=== PATIENT | female | born 1945 | race African-American/Black ===

== ENCOUNTER 2018-12-03 09:57 | Emergency (ER) | payer MEDICAID, MEDICARE, OTHER ==
[~2018-12-03] VITALS: Ht 157.5 cm; Wt 54.0 kg
[~2018-12-03 09:57] MED LIST: CEPH-569 PO
[2018-12-03] MEDS ORDERED: SODIUM CHLORIDE 0.9% 1,000 ML IV ONE (11:04)
[2018-12-03] MEDS ORDERED: ONDANSETRON HCL 4MG/2ML INJ IV STA (11:04)
[2018-12-03] MEDS ORDERED: MORPHINE SULFATE 4 MG/ML CPJ (NOT FOR IM USE) IV STA (11:04)
[2018-12-03 11:53] LABS: MEAN CORPUSCULAR HEMOGLOBIN 16.6 pg (28.0-32.0); MEAN CORPUSCULAR VOLUME 57.8 fL (81.0-99.0); MEAN PLATELET VOLUME 6.4 fl (7.4-10.4); PLATELET 905 x1000/uL (130-400); RED BLOOD CELL COUNT 2.68 mill/uL (4.2-5.4); RED CELL DISTRIBUTION WIDTH 19.5 % (11.6-14.6)
[2018-12-03 11:58] LABS: CHLORIDE 110 mEq/L (98-107)
[2018-12-03 11:59] LABS: INR 1.1; PROTHROMBIN TIME 11.4 sec (9.6-11.0)
[2018-12-03 12:11] LABS: HEMATOCRIT. 15.5 % (36.0-48.0); HEMOGLOBIN. 4.5 g/dL (12.0-16.0)
[2018-12-03 12:37] LABS: PLATELET ESTIMATE MARKEDLY INCREASED
[2018-12-03] MEDS ORDERED: IOHEXOL-300 100 ML BOTTLE ONE (14:27)
[2018-12-03 14:57] LABS: CLARITY URINE CLEAR (CLEAR); COLOR URINE YELLOW (YELLOW); KETONES URINE 1+ (NEGATIVE); LEUKOCYTE ESTERASE URINE 1+ (NEGATIVE); NITRITE URINE NEGATIVE (NEGATIVE); OCCULT BLOOD URINE NEGATIVE (NEGATIVE); PROTEIN URINE NEGATIVE (NEGATIVE); SPECIFIC GRAVITY URINE 1.022 (1.005-1.030); UROBILINOGEN URINE 0.2 E.U./dL (0.2-1.0)
[2018-12-03] MEDS ORDERED: METRONIDAZOLE 500 MG PREMIX 100 ML IV ONE (15:15)
[2018-12-03] MEDS ORDERED: CEFTRIAXONE 2 G PREMIX 50 ML IV ONE (15:15)
[2018-12-03 21:30] VITALS: BP 129/57
== END 2018-12-03 22:11 | disposition short-term general hospital (02) ==
LOC: ER 09:57
DX: D47.3 Essential (hemorrhagic) thrombocythemia (principal); K52.9 Noninfective gastroenteritis and colitis, unspecified; N39.0 Urinary tract infection, site not specified
CPT/HCPCS: 36415; 74177; 80053; 81003; 82270; 83690; 85025; 85610; 86850; 86900; 86901; 86920; 93005; 96361; 96365; 96367; 96375; 99291; J0696; J2270; J2405; J3490; J7030; Q9967; P9016

== ENCOUNTER 2020-01-02 13:32 | Emergency (ER) | payer MEDICARE, OTHER ==
[~2020-01-02] VITALS: Ht 154.9 cm; Wt 41.0 kg
[2020-01-02] MEDS ORDERED: SODIUM CHLORIDE 0.9% 1,000 ML IV ONE ×2 (13:48→15:00)
[2020-01-02 14:40] LABS: HEMATOCRIT. 30.9 % (36.0-48.0); HEMOGLOBIN. 10.5 g/dL (12.0-16.0); MEAN CORPUSCULAR HEMOGLOBIN 29.2 pg (28.0-32.0); MEAN PLATELET VOLUME 7.2 fl (7.4-10.4); PLATELET 226 x1000/uL (130-400); RED BLOOD CELL COUNT 3.59 mill/uL (4.2-5.4); RED CELL DISTRIBUTION WIDTH 15.8 % (11.6-14.6)
[2020-01-02 14:41] LABS: CHLORIDE 104 mEq/L (98-107)
[2020-01-02 14:42] LABS: INR 1.4; PROTHROMBIN TIME 14.3 sec (9.6-11.0)
[2020-01-02] MEDS ORDERED: POTASSIUM CHLORIDE INJ 40 MEQ in DEXT 5% WATER 250 ML IV ONE (15:00)
[2020-01-02] MEDS ORDERED: POTASSIUM CHLORIDE 20MEQ TABLET SR PO ONE (15:00)
[2020-01-02 16:37] LABS: PLATELET ESTIMATE NORMAL
[2020-01-02 20:18] VITALS: BP 128/67
== END 2020-01-02 20:25 | disposition short-term general hospital (02) ==
LOC: ER 13:32 → CANBEDREQ 21:47
DX: R53.1 Weakness (principal); E86.0 Dehydration; E87.6 Hypokalemia; Z85.028 Personal history of other malignant neoplasm of stomach; Z92.21 Personal history of antineoplastic chemotherapy
CPT/HCPCS: 36415; 71045; 80053; 84484; 85025; 85610; 93005; 96361; 96365; 99285; J3480; J7030; J7060